=== PATIENT | female | born 1990 | race Caucasian/White ===

== ENCOUNTER 2020-03-07 14:31 | Inpatient (IN) ==
[2020-03-07 15:15] LABS: Basophils # 0.1 K/mcL (0.0-0.2); Basophils % 0.5 %; Eosinophils # 0.4 K/mcL (0.0-0.6); Eosinophils % 4.7 %; Hematocrit 41.6 % (35.3-44.9); Hemoglobin 13.9 g/dL (11.5-15.4); Immature Granulocytes % 0.1 % (0-4); Lymphocytes # 3.1 K/mcL (0.6-4.6); Lymphocytes % 34.1 %; Mean Corpuscular HGB Conc 33.4 g/dL (31.6-35.5); Mean Corpuscular Volume 86.8 fL (83.0-100.0); Mean Platelet Volume 10.7 fL (9.4-12.4); Monocytes # 0.6 K/mcL (0.0-1.3); Monocytes % 6.2 %; Platelet Count 265 K/mcL (140-400); Red Blood Count 4.79 M/mcL (3.82-4.97); Red Cell Distribution Width 13.2 % (11.5-14.5); Segmented Neutrophils % 54.4 %; White Blood Count 9.1 K/mcL (4.3-11.1)
[2020-03-07 15:16] LABS: Bilirubin,Urine Negative (Negative); Blood,Urine Negative (Negative); Clarity,Urine Cloudy (Clear); Color,Urine Yellow (Yellow); Glucose,Urine (UA) Normal (Normal); Ketones,Urine Negative (Negative); Leukocyte Esterase,Urine Negative (Negative); Nitrite,Urine Negative (Negative); Protein,Urine Negative (Neg-Trace); Specific Gravity,Urine 1.016 (1.010-1.025); Urobilinogen,Urine Normal (Normal)
[2020-03-07 15:18] LABS: Bacteria,Urine Moderate per hpf (None-Few); Hyaline Casts,Urine None Seen per lpf (None-Few); Squamous Epithelial Cell,Urine Many per lpf (None-Few); WBC,Urine 0-3 per hpf (0-3)
[2020-03-07 15:27] LABS: Amphetamine Screen,Urine Negative ng/mL (Cutoff=1000); Barbiturate Screen,Urine Negative ng/mL (Cutoff=200); Benzodiazepines Screen,Urine Negative ng/mL (Cutoff=200); Cannabinoid Screen,Urine Positive ng/mL (Cutoff = 50); Cocaine Screen,Urine Negative ng/mL (Cutoff= 300); Opiate Screen,Urine Negative ng/mL (Cutoff=300); Phencyclidine Screen,Urine Negative ng/mL (Cutoff=25)
[2020-03-07 15:36] LABS: Acetaminophen < 10 mcg/mL (10-20); BUN/Creatinine Ratio 15 (6-26); Blood Urea Nitrogen 12 mg/dL (6-20); Calcium 9.3 mg/dL (8.6-10.3); Carbon Dioxide 27 mEq/L (23-29); Chloride 105 mEq/L (98-107); Ethanol < 10 mg/dL (Less than 10); Glucose 114 mg/dL (70-105); Osmolality,Calculated 289 (280-300); Potassium 3.8 mEq/L (3.5-5.1); Salicylate < 2.5 mg/dL (15.0-30.0); Sodium 139 mEq/L (136-145); eGFR For African Americans > 60 (> 60); eGFR For Non-African Americans > 60 (> 60)
[2020-03-07] MEDS ORDERED: *HR* LORazepam 1 MG TABLET PO PRN (16:54)
[2020-03-07] MEDS ORDERED: haloperidoL 5 MG TABLET PO PRN (16:54)
[2020-03-07] MEDS ORDERED: MOM Conc 10 ML UD.LIQ PO PRN (16:54)
[2020-03-07] MEDS ORDERED: hydrOXYzine pamoate 25 MG CAPSULE PO PRN (16:54)
[2020-03-07] MEDS ORDERED: *HR* LORazepam 2 MG/ML VIAL IM PRN (16:54)
[2020-03-07] MEDS ORDERED: Mag Hydrox/Al Hydrox/Simeth 30 ML UDC PO PRN (16:54)
[2020-03-07] MEDS ORDERED: Haloperidol Lactate 5 MG/ML VIAL IM PRN (16:54)
[2020-03-07] MEDS: Mirtazapine 15 MG TABLET PO SCH (20:20)
[2020-03-08] MEDS: Nicotine 14 MG PATCH.TD24 TD SCH (08:52)
[2020-03-08] MEDS ORDERED: SUMATRIPTAN IN PRN (08:55)
[2020-03-08] MEDS: Divalproex (12 HR) 500 MG TABLET PO SCH ×2 (09:12→21:18)
[2020-03-08] MEDS ORDERED: SUMAtriptan succinate 25 MG TABLET PO PRN (10:40)
[2020-03-08] MEDS: Mirtazapine 15 MG TABLET PO SCH (21:18)
[2020-03-09] MEDS: Acetaminophen 325 MG TABLET PO PRN (05:18)
[2020-03-09] MEDS: Divalproex (12 HR) 500 MG TABLET PO SCH ×2 (08:19→20:52)
[2020-03-09] MEDS: Nicotine 14 MG PATCH.TD24 TD SCH (08:19)
[2020-03-09 08:23] LABS: Chol/HDL Ratio 3.9 (0-4.9)
[2020-03-09 08:24] LABS: Albumin 4.6 g/dL (3.5-5.7); Albumin/Globulin Ratio 1.8 (1.1-2.2); Bilirubin,Direct 0.1 mg/dL (0.0-0.2); Bilirubin,Indirect 0.3 mg/dL (0.0-1.0); Bilirubin,Total 0.4 mg/dL (0.3-1.0); Globulin 2.6 g/dL (2.4-3.5); Total Protein 7.2 g/dL (6.4-8.9)
[2020-03-09 08:40] LABS: Estimated Average Glucose 114 mg/dl
[2020-03-09] MEDS ORDERED: Mirtazapine 15 MG TABLET PO SCH (21:00)
[2020-03-10] MEDS: Acetaminophen 325 MG TABLET PO PRN (06:22)
[2020-03-10] MEDS: Divalproex (12 HR) 500 MG TABLET PO SCH (08:24)
[2020-03-10] MEDS: Nicotine 14 MG PATCH.TD24 TD SCH (08:24)
[2020-03-10 08:46] VITALS: BP 110/80
== END 2020-03-10 10:26 | disposition home or self-care (01) | DRG 753 ==
LOC: EMEROOARM 14:31 → 1ANU 16:52
PROVIDERS: ADMIT Psychiatry & Neurology Psychiatry; ATTEND Psychiatry & Neurology Psychiatry